=== PATIENT | female | born 1975 | race African-American/Black ===

== ENCOUNTER 2019-08-25 12:40 | Emergency (ER) | payer OTHER ==
[~2019-08-25] VITALS: Ht 162.6 cm; Wt 132.0 kg
[2019-08-25] MEDS ORDERED: IBUPROFEN 600MG TABLET PO ONE (17:45)
[2019-08-25 18:16] VITALS: BP 118/77
== END 2019-08-25 18:20 | disposition home or self-care (01) ==
LOC: ER 12:40
DX: S80.01XA Contusion of right knee, initial encounter (principal); V47.0XXA Car driver injured in collision with fixed or stationary object in nontraffic accident, initial encounter; Y93.89 Activity, other specified; Y92.481 Parking lot as the place of occurrence of the external cause; R03.0 Elevated blood-pressure reading, without diagnosis of hypertension
CPT/HCPCS: 73560; 81025; 99283

== ENCOUNTER 2023-09-07 11:32 | Emergency (ER) | payer SELFPAY ==
[~2023-09-07] VITALS: Ht 162.6 cm; Wt 122.8 kg
[2023-09-07 11:57] VITALS: BP 166/95; PULSE 83; RESP 16; TEMP 98.3; O2SAT 97
[2023-09-07 12:44] LABS: BASOPHILS % 0.4 % (0.0-2.0); EOSINOPHILS % 3.1 % (0.0-5.0); HEMATOCRIT. 40.1 % (36.0-48.0); HEMOGLOBIN. 12.9 g/dL (12.0-16.0); LYMPHOCYTES % 39.5 % (20.0-50.0); MEAN CORPUSCULAR HEMOGLOBIN 26.3 pg (28.0-32.0); MEAN CORPUSCULAR HGB CONC 32.1 g/dL (31.0-37.0); MEAN CORPUSCULAR VOLUME 82.1 fL (81.0-99.0); MEAN PLATELET VOLUME 7.8 fl (7.4-10.4); PLATELET 233 x1000/uL (130-400); RED BLOOD CELL COUNT 4.88 mill/uL (4.2-5.4); RED CELL DISTRIBUTION WIDTH 14.6 % (11.6-14.6); WHITE BLOOD COUNT 4.3 x1000/uL (4.5-11.0)
[2023-09-07 12:55] LABS: CHLORIDE 107 mEq/L (98-107); POTASSIUM 4.2 mEq/L (3.5-5.1); SODIUM 140 mEq/L (136-145)
[2023-09-07 12:56] LABS: CALCIUM 9.3 mg/dL (8.7-10.4); CARBON DIOXIDE 28 mEq/L (21-32)
[2023-09-07] MEDS ORDERED: MECLIZINE 25MG TABLET PO ONE (13:00)
[2023-09-07 13:01] LABS: CREATININE 0.7 mg/dL (0.6-1.0); GLUCOSE 95 mg/dL (70-105); UREA NITROGEN BLOOD 7 mg/dL (9-23)
[2023-09-07 13:02] LABS: TROPONIN I HIGH SENSITIVITY 4 ng/L (3.0-34)
[2023-09-07] MEDS ORDERED: MECLIZINE 12.5MG TABLET PO NR (13:30)
== END 2023-09-07 14:26 | disposition left against medical advice (07) ==
LOC: ER 11:32
DX: R51.9 Headache, unspecified (principal); R42 Dizziness and giddiness
CPT/HCPCS: 99284; 70450; 80048; 85025; 84484; 36415; 93005; J8597